=== PATIENT | female | born 1960 | race Caucasian/White ===

== ENCOUNTER 2017-07-30 08:44 | Day surgery (SDC) | payer OTHER ==
[2017-07-30] MEDS ORDERED: FENTAnyl 50 MCG/ML VIAL (10:47)
[2017-07-30] MEDS ORDERED: MIDAZOLAM 1 MG/ML 2 ML INJ ×3 (10:47)
== END 2017-07-30 16:01 | disposition home or self-care (01) ==
LOC: GIL 08:44
DX: Z12.11 Encounter for screening for malignant neoplasm of colon (principal); D12.0 Benign neoplasm of cecum; K57.90 Diverticulosis of intestine, part unspecified, without perforation or abscess without bleeding
CPT/HCPCS: 45380; 88305